=== PATIENT | female | born 1955 | race Caucasian/White ===

== ENCOUNTER 2022-09-14 09:48 | Outpatient (CLI) | payer MEDICARE, BC ==
[~2022-09-14 09:48] MED LIST: LISI20TA28 PO
== END 2022-09-14 23:59 | disposition home or self-care (01) ==
LOC: RAD 09:48
PROVIDERS: ATTEND Physician Assistant
DX: M47.812 Spondylosis without myelopathy or radiculopathy, cervical region (principal); M48.02 Spinal stenosis, cervical region; I65.23 Occlusion and stenosis of bilateral carotid arteries; R93.89 Abnormal findings on diagnostic imaging of other specified body structures; M54.2 Cervicalgia; G89.29 Other chronic pain
CPT/HCPCS: 70547; 72141